=== PATIENT | male | born 1990 | race Two or more races ===

== ENCOUNTER 2020-01-12 02:22 | Emergency (ER) | payer MEDICAID, OTHER ==
[~2020-01-12] VITALS: Ht 177.8 cm; Wt 93.3 kg
[2020-01-12] MEDS ORDERED: LIDOCAINE-MPF 1%, 5ML ONE (02:39)
--- NOTE | 2020-01-12 02:59 | NUR ---
pt refuses head ct
[2020-01-12] MEDS ORDERED: LIDOCAINE-MPF 1%, 5ML INFIL ONE (03:00)
[2020-01-12 03:12] VITALS: BP 142/97
== END 2020-01-12 03:19 | disposition home or self-care (01) ==
LOC: ED 02:30
DX: S09.90XA Unspecified injury of head, initial encounter (principal); G89.11 Acute pain due to trauma; Y00.XXXA Assault by blunt object, initial encounter; Y93.89 Activity, other specified; Y92.89 Other specified places as the place of occurrence of the external cause; Y99.8 Other external cause status
CPT/HCPCS: 12032; 99284